=== PATIENT | female | born 1990 ===

== ENCOUNTER 2020-08-23 08:24 | Outpatient (REF) | payer OTHER, SELFPAY ==
[2020-08-23 11:41] LABS: Hematocrit 40.9 % (37-47); Hemoglobin 13.2 g/dl (12.0-16.0)
[2020-08-23 12:26] LABS: Alanine Aminotransferase 27 U/L (0-31); Albumin Level 4.4 g/dL (3.5-5.0); Alkaline Phosphatase 58 U/L (39-117); Anion Gap 11 (12-20); Aspartate Amino Transferase 24 U/L (5-31); Bilirubin Total 0.3 mg/dL (0.0-1.0); Blood Urea Nitrogen 20 mg/dL (9-16); Calcium 9.2 mg/dL (8.4-10.2); Carbon Dioxide 26 mmol/L (22-29); Chloride 107 mmol/L (96-108); Cholesterol 164 mg/dL; Estimated Glomerular Filt Rate > 60; Glucose Fasting 93 mg/dL (60-99); HDL Cholesterol 65 mg/dL; LDL Cholesterol Calculated 89 mg/dl; Potassium 4.2 mmol/L (3.3-5.1); Sodium 140 mmol/L (135-145); Total Protein 7.4 g/dL (6.5-8.0); Triglycerides 54 mg/dL
[2020-08-24 08:42] LABS: Herpes Simplex Type 2 IgG <0.90 index
== END 2020-08-23 08:25 | disposition home or self-care (01) ==
LOC: HO.HMGCLDS 08:24
PROVIDERS: PCP Internal Medicine; Visit Provider Internal Medicine
DX: Z00.01 Encounter for general adult medical examination with abnormal findings (principal); B00.1 Herpesviral vesicular dermatitis
CPT/HCPCS: 36415; 80053; 80061; 85014; 85018; 86695; 86696

== ENCOUNTER 2021-01-13 10:48 | Outpatient (REF) | payer OTHER, SELFPAY ==
[2021-01-13 14:48] LABS: HCG Quantitative < 2 mIU/mL
== END 2021-01-13 10:49 | disposition home or self-care (01) ==
LOC: HO.HMGCLDS 10:48
PROVIDERS: PCP Internal Medicine; Visit Provider Internal Medicine
DX: Z34.90 Encounter for supervision of normal pregnancy, unspecified, unspecified trimester (principal)
CPT/HCPCS: 36415; 84702

== ENCOUNTER 2022-05-15 12:42 | Outpatient (REF) | payer BC, MEDICAID, SELFPAY ==
--- NOTE | ~2022-05-15 | XR_ITS ---
EXAMINATION: XR WRIST, RIGHT CLINICAL INFORMATION: Wrist pain COMPARISON: None TECHNIQUE: PA, lateral, and oblique views of the right wrist. FINDINGS: The bones and soft tissues are normal. No fracture. Alignment is anatomic with normal joint spaces. No erosions or abnormal soft tissue calcifications. XR/XR wrist RT min 3V IMPRESSION: Normal right wrist.
== END 2022-05-15 12:43 | disposition home or self-care (01) ==
LOC: HO.HMGCX 12:42
PROVIDERS: PCP Internal Medicine; Visit Provider Physician Assistant Medical
DX: M25.531 Pain in right wrist (principal)
CPT/HCPCS: 73110

== ENCOUNTER 2022-10-05 09:15 | Outpatient (REF) | payer BC, MEDICAID, SELFPAY ==
--- NOTE | ~2022-10-05 | XR_ITS ---
EXAMINATION: XR CHEST CLINICAL INFORMATION: Dizziness and giddiness COMPARISON: None available. TECHNIQUE: 2 views of the chest were obtained. FINDINGS: No significant abnormality is noted involving the heart, lungs, mediastinum, bony thorax or soft tissues. XR/XR chest 2V IMPRESSION: Unremarkable examination.
[2022-10-05 11:44] LABS: Appearance Urine Cloudy; Color Urine Yellow; Glucose Urine UA Negative (Negative); Leukocyte Esterase Urine Small (1+) (Negative); Nitrite Urine Negative (Negative); Specific Gravity - Urine 1.015 (1.005-1.025); UMIC TRIGGER UA YES; Urine Blood Moderate (2+) (Negative); Urine Ketones Negative (Negative); Urine Protein Trace mg/dL (Neg-Trace)
[2022-10-05 11:44] LABS: Hematocrit 43.2 % (37.0-47.0); Hemoglobin 14.7 g/dl (12.0-16.0); Mean Corpuscular Hemoglobin 31.8 pg (27.0-33.0); Mean Corpuscular Volume 93.5 fL (80.0-98.0); Mean Platelet Volume 11.2 fL (9.4-12.3); Platelet Count 202 X10*3/uL (160-400); Red Blood Count 4.62 X10*6/uL (4.20-5.50); Red Cell Distribution Width 12.2 % (11.0-16.0); White Blood Count 4.9 X10*3/uL (4.8-10.8)
[2022-10-05 12:03] LABS: Bacteria Urine 4+ (None Seen); Hyaline Casts Urine 0-2 /LPF (0-2); RBC Urine 0-2 /HPF (0-2)
[2022-10-05 12:18] LABS: Alanine Aminotransferase 18 U/L (0-31); Albumin Level 4.1 g/dL (3.5-5.0); Alkaline Phosphatase 64 U/L (39-117); Anion Gap 11 (12-20); Aspartate Amino Transferase 14 U/L (5-31); Bilirubin Direct 0.1 mg/dL (0.0-0.5); Bilirubin Total 0.3 mg/dL (0.0-1.0); Blood Urea Nitrogen 12 mg/dL (9-16); Calcium 9.1 mg/dL (8.4-10.2); Carbon Dioxide 24 mmol/L (22-29); Chloride 108 mmol/L (96-108); Estimated Glomerular Filt Rate > 60; Glucose Random 96 mg/dL (60-115); Potassium 4.3 mmol/L (3.3-5.1); Sodium 139 mmol/L (135-145); Total Protein 7.2 g/dL (6.5-8.0)
[2022-10-05 12:21] LABS: Thyroid Stimulating Hormone 1.61 uIU/mL (0.32-4.0)
== END 2022-10-05 09:16 | disposition home or self-care (01) ==
LOC: HO.HMGCX 09:15
PROVIDERS: PCP Internal Medicine; Visit Provider Internal Medicine
DX: R42 Dizziness and giddiness (principal); E03.9 Hypothyroidism, unspecified
CPT/HCPCS: 36415; 71046; 80048; 80076; 81001; 84443; 85027

== ENCOUNTER 2023-01-13 11:13 | Outpatient (AMB) | payer BC, SELFPAY ==
--- NOTE | 2023-01-13 11:15 | A.OFFPC_ITS ---
Vital Signs 01/13/23 11:18 Height 5 ft 4 in Weight 146 lb BMI 25.1 BP 116/76 Blood Pressure Location Rt brachial Position Sitting Pulse 78 Pulse Source Pulse Oximeter Pulse Oximetry (%) 97 Oxygen Delivery Method Room Air Intake Visit Reasons: Physical exam Intake Note: she would like to talk about on going headaches, almost daily. Allergies lactose Allergy (Unknown, Verified 01/13/23 11:19) abdominal pain seasonal Allergy (Unknown, Uncoded 01/13/23 11:19) unknown Medication List - Last Reconciled 01/13/23 by Mo Davis MD ascorbate calcium (vitamin C) 500 mg PO DAILY ibuprofen 400 mg (2 x 200 mg) PO ONCE PRN 90 days norethindrone ac-eth estradiol 1.5-30 mg-mcg (June) 1 tab PO DAILY valacyclovir 500 mg PO DAILY Tobacco use date assessed: 01/13/23 Dental Screening Dental Screen Date: 01/13/23 Did you have a dental visit in the last 12 months?: Yes Was dental information given to patient?: Patient has dentist HPI Physical exam HPI Details Patient is a 32-year-old female came in today for physical examination Patient has seen her OBGYN December 06, consultation note reviewed Patient was seen in walk-in clinic for possible UTI patient says that she was told that she has infection but for some reason medication was not sent. Her OBGYN note mention PCP but it was not me it was a provider in walk-in clinic. Patient says that it was a mistake that she set PCP. She was treated at OBGYN visit and is feeling fine. Patient have a large skin growth in the middle of her chest which is bleeding off and on she is requesting a consultation with Dermatology. She also have a history of migraine headaches which has been fine but lately they have started to come back again They start from 1 side of the head and then spread to the whole head. Throbbing in nature and sometimes associated with nausea I am starting her on amitriptyline 10 mg at night as a prevention And sumatriptan 50 mg to be taken as soon as headache starts once a day only. 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 She had labs done few weeks ago I went over that common no new labs were ordered during this visit. Physical exam 1 year [facility] Surgical History History of knee surgery Family History Father HTN (hypertension) Diabetes mellitus Mother Breast cancer Paternal Uncle Lung cancer Sister No problems noted. Social History Housing: House Alcohol intake: current Alcohol intake frequency: a few times a month Patient Tobacco Use Status: Never used Tobacco e-Cigarette/Vaping Use: Never Used service: No Current occupational status: employed Cognitive needs: No Hearing needs: No Vision needs: Yes Questionnaire PHQ-9 Over the last 2 weeks, how often have you been bothered by any of the following problems? [id number] - PHQ-9 Billing: Patient declined-do not bill Source: Developed by Drs. Serjio Greene, Shivani Bell, Rolando Murillo and colleagues, with an educational tahira from [employer]. AUDIT C Alcohol Use Questionnaire (AUDIT-C) 1. How often do you have a drink containing alcohol?: Never 3. How often do you have six or more drinks on one occasion?: Never Total Score: 0 Score Reviewed/Action Taken: No Review of Systems Const Denies chills, Denies fever(s) and Denies headache(s) Eyes Denies blurry vision ENT Denies headache(s), Denies nasal discharge, Denies nasal obstruction, Denies odynophagia and Denies sinus pain Card Denies chest pain at rest and Denies chest pain with activity Resp Denies cough and Denies hemoptysis GI Denies diarrhea, Denies odynophagia, Denies vomiting and Denies hematemesis Reports as per HPI Musc Denies abnormal gait Skin/Breast Reports as per HPI Neuro Denies Neuro-related abnormal movements, Denies Abnormal speech present, Denies abnormal gait, Denies headache(s) and Denies Sensory deficit (Neuro) Psych Denies mood swings and Denies paranoia Endo Reports as per HPI Stefano/Lymph Reports as per HPI Aller/Immun Reports as per HPI Physical exam (Primary Care) Vital Signs: Last Vital Signs Pulse 78 01/13/23 11:18 BP 116/76 01/13/23 11:18 Pulse Ox 97 01/13/23 11:18 Oxygen Delivery Method Room Air 01/13/23 11:18 BMI result Body Mass Index 25.1 Tobacco/Smoking Status: Tobacco use Status Tobacco use date assessed 01/13/23 01/13/23 11:22 Patient Tobacco Use Status Never used Tobacco 01/13/23 11:16 e-Cigarette/Vaping Use Never Used 01/13/23 11:16 Const General: cooperative, comfortable and no acute distress Orientation/consciousness: patient oriented x3 HENMT Head: Yes normocephalic and Yes atraumatic Eyes General: appearance normal, both eyes and all related structures Pupils: Equal, round and reactive pupils present EOM: EOMs intact bilaterally Neck Neck: Yes supple and No lymphadenopathy Thyroid: Thyroid normal Lymphatic: no lymphadenopathy noted Resp Effort & Inspection: normal respiratory effort and able to speak in complete s entences Auscultation: clear to auscultation bilaterally Cardio Heart sounds: S1 normal heart sound present and S2 normal heart sound present GI Palpation (GI): Soft to palpation and nontender Auscultation: normal bowel sounds General: Yes no CVA tenderness Back/Spine/Pelvis Back: no CVA tenderness Skin General skin exam: elasticity normal and turgor normal Neuro General: patient oriented x3 and gait normal Cranial nerves: Yes Equal, round and reactive pupils present Speech: No Abnormal speech present Sensory Exam: No Sensory deficit (Neuro) Coordination: tandem gait normal and Romberg test negative Extrem General: Yes normal exam except as noted and No edema Assessment and Plan Assessment & Plan (1) Encounter for general adult medical examination with abnormal findings: Code(s): Z00.01 - Encounter for general adult medical examination with abnormal findings (2) Bleeding skin mole: Code(s): D22.9 - Melanocytic nevi, unspecified; R23.3 - Spontaneous ecchymoses (3) Herpes labialis: Code(s): 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 - Herpesviral vesicular dermatitis (4) Migraine headache: Code(s): G43.909 - Migraine, unspecified, not intractable, without status migrainosus Qualifiers: Intractability: intractable Migraine type: without aura Status migrainosus presence: without status migrainosus Qualified Code(s): G43.019 - Migraine without aura, intractable, without status migrainosus Plan Patient is a 32-year-old female came in today for physical examination Patient has seen her OBGYN December 06, consultation note reviewed Patient was seen in walk-in clinic for possible UTI patient says that she was told that she has infection but for some reason medication was not sent. Her OBGYN note mention PCP but it was not me it was a provider in walk-in clinic. Patient says that it was a mistake that she set PCP. She was treated at OBGYN visit and is feeling fine. Patient have a large skin growth in the middle of her chest which is bleeding off and on she is requesting a consultation with Dermatology. She also have a history of migraine headaches which has been fine but lately th ey have started to come back again They start from 1 side of the head and then spread to the whole head. Throbbing in nature and sometimes associated with nausea I am starting her on amitriptyline 10 mg at night as a prevention And sumatriptan 50 mg to be taken as soon as headache starts once a day only. 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 She had labs done few weeks ago I went over that common no new labs were ordered during this visit. Physical exam 1 year Orders: Referrals Dermatology Referral D22.9 - Melanocytic nevi, unspecified, R23.3 - Spontaneous ecchymoses Medications: New amitriptyline 10 mg PO BEDTIME 30 tabs 1RF sumatriptan succinate 50 mg PO ONCE PRN 10 tabs 0RF migraine headache 30 days Refilled valacyclovir 500 mg PO DAILY 90 tabs 0RF Coding Level of Care Code Est Pt Prev Care 18-39y(81669) Diagnoses Encounter for general adult medical examination with abnormal findings Z00.01 Bleeding skin mole D22.9; R23.3 Herpes labialis B00.1 Migraine headache G43.019 Intractability: intractable Migraine type: without aura Status migrainosus presence: without status migrainosus
[2023-01-13 11:18] VITALS: BP 116/76; PULSE 78; O2SAT 97; BMI 25.1
== END 2023-01-13 11:47 | disposition home or self-care (01) ==
PROVIDERS: PCP Internal Medicine; Visit Provider Internal Medicine
DX: Z00.01 Encounter for general adult medical examination with abnormal findings (principal); G43.019 Migraine without aura, intractable, without status migrainosus; D22.9 Melanocytic nevi, unspecified; R23.3 Spontaneous ecchymoses; B00.1 Herpesviral vesicular dermatitis
CPT/HCPCS: 99395

== ENCOUNTER 2023-03-17 14:55 | Outpatient (AMB) | payer BC, SELFPAY ==
[2023-03-17 14:59] VITALS: BP 110/70; PULSE 92; TEMP 36.7; O2SAT 99; BMI 24.7
--- NOTE | 2023-03-17 14:59 | AM.OFFWIN_ITS ---
Intake Vital Signs 03/17/23 14:59 Height 5 ft 4 in Weight 144 lb BMI 24.7 BP 110/70 Blood Pressure Location Lt brachial Position Sitting Pulse 92 Pulse Source Pulse Oximeter Temp 98.0 F Temp Source Temporal Artery Scan Pulse Oximetry (%) 99 Intake Visit Reasons: EST/sore throat(lobby) Intake Note: pt is here for c/o sore throat 3x weeks Patient Tobacco Use Status: Never used Tobacco Allergies lactose Allergy (Unknown, Verified 03/17/23 14:59) abdominal pain seasonal Allergy (Unknown, Uncoded 01/13/23 11:19) unknown Do you need a note to return to daycare/school/sports/work: Yes HPI HPI Comments History of Present Illness Details 32-year-old I would not have female that presents for sore throat cough and a postnasal drip times 3 weeks. Cough is productive denies fevers or chills endorses some shortness of breath with coughing fits. PFSH Surgical History History of knee surgery Family History Father HTN (hypertension) Diabetes mellitus Mother Breast cancer Paternal Uncle Lung cancer Sister No problems noted. Social History Housing: House Alcohol intake: current Alcohol intake frequency: a few times a month Patient Tobacco Use Status: Never used Tobacco e-Cigarette/Vaping Use: Never Used service: No Current occupational status: employed Cognitive needs: No Hearing needs: No Vision needs: Yes Review of Systems ENT Reports sore throat Resp Reports chest congestion and Reports cough Physical Exam Vital Signs: Last Vital Signs Temp 98.0 F 03/17/23 14:59 Pulse 92 03/17/23 14:59 BP 110/70 03/17/23 14:59 Pulse Ox 99 03/17/23 14:59 BMI result Body Mass Index 24.7 Const General: cooperative, no acute distress and alert Orientation/consciousness: patient oriented x3 Limitations: no limitations HEENT Other: Mild erythema in the posterior pharynx uvula midline no trismus Head: Yes normal to inspection Ears: hearing grossly normal bilaterally and external ears normal General nose exam: Normal external nose present Eyes General: appearance normal, both eyes and all related structures Neck Neck: Yes normal visual inspection Resp Effort & Inspection: normal respiratory effort, able to speak in complete sentences and no audible wheezes Auscultation: clear to auscultation bilaterally Cardio Rate: regular rate Rhythm: regular rhythm Skin General skin exam: no rashes or lesions noted Neuro General: patient oriented x3 Psych Appearance: grossly normal Mental Status: mental status grossly normal Speech and movement: Normal speech and movement present Affect: normal affect Attitude: cooperative Thought process: Normal thought process present Thought content: Normal thought content present Assessment & Plan Assessment & Plan (1) URI (upper respiratory infection): Code(s): J06.9 - Acute upper respiratory infection, unspecified Qualifiers: URI type: unspecified viral URI Qualified Code(s): J06.9 - Acute upper respiratory infection, unspecified Plan: VSS. On exam patient presents alert and oriented no acute distress exam otherwise unremarkable patient was suffering from viral URI recommend continued symptomatic treatment recommend addition of antihistamines to help with postnasal drip. Discharge instructions, follow up and treatment are discussed with patient in my usual fashion. Alternatives in treatment are also discussed. The patient will return for worsening symptoms or as needed. Advised that any labs/imaging order ed will be followed up on and contact made if further treatment needed. Counseled that patient's condition may require further evaluation and/or treatment. Symptoms of concern for worsening disorder discussed in detail in my customary manner. Patient does verbalize understanding of the plan, there are no apparent barriers to communication. The patient is given the opportunity to ask questions and have them answered to his/her satisfaction Coding Level of Care Code Est Pt Level 3 (08047) Diagnoses Viral upper respiratory tract infection J06.9 URI type: unspecified viral URI
== END 2023-03-17 15:22 | disposition home or self-care (01) ==
PROVIDERS: PCP Internal Medicine; Visit Provider Physician Assistant
DX: J06.9 Acute upper respiratory infection, unspecified (principal)
CPT/HCPCS: 99213

== ENCOUNTER 2023-06-19 09:33 | Outpatient (AMB) | payer BC, SELFPAY ==
[2023-06-19 10:17] VITALS: BP 130/82; PULSE 85; TEMP 36.7; O2SAT 99; BMI 24.8
--- NOTE | 2023-06-19 10:17 | MHC.OFFWIV ---
Intake Vital Signs 06/19/23 10:17 Height 5 ft 4 in Weight 144 lb 6 oz BMI 24.8 BP 130/82 Blood Pressure Location Lt brachial Position Sitting Pulse 85 Pulse Source Pulse Oximeter Temp 98.0 F Temp Source Oral Pulse Oximetry (%) 99 Intake Visit Reasons: EP strep throat possible pink eye both eyes Intake Note: pt is here for c/o possible strep throat, possible oink eye in both eyes Patient Tobacco Use Status: Never used Tobacco Allergies lactose Allergy (Unknown, Verified 06/19/23 10:18) abdominal pain seasonal Allergy (Unknown, Uncoded 01/13/23 11:19) unknown Do you need a note to return to daycare/school/sports/work: Yes HPI HPI Comments History of Present Illness Details This is a 32-year-old female presenting to the office complaining of a sore throat as well as bilateral eye redness and discharge x2 weeks. She states her symptoms started 2 weeks ago but actually resolved. Her symptoms then started again about 2 days ago. In terms for sore throat, she reports odynophagia but she denies any dysphagia or throat swelling. She denies any fever/chills. She denies any nasal/sinus congestion or rhinorrhea. In terms of her eye symptoms, she states she has been waking up with her eyes crusted shut. Her eyes are slightly erythematous. She denies any visual disturbances. [facility] Surgical History History of knee surgery Family History Father HTN (hypertension) Diabetes mellitus Mother Breast cancer Paternal Uncle Lung cancer Sister No problems noted. Social History Housing: House Alcohol intake: current Alcohol intake frequency: a few times a month Patient Tobacco Use Status: Never used Tobacco e-Cigarette/Vaping Use: Never Used service: No Current occupational status: employed Cognitive needs: No Hearing needs: No Vision needs: Yes Review of Systems Const All systems reviewed & are unremarkable except as noted in HPI and below Reports no additional complaints Eyes Reports no additional complaints ENT Reports no additional complaints Card Reports no additional complaints Resp Reports no additional complaints GI Reports no additional complaints Reports no additional complaints Musc Reports no additional complaints Skin/Breast Reports system reviewed and no additional complaints, except as documented Neuro Reports no additional complaints Psych Reports no additional complaints Endo Reports no additional complaints Stefano/Lymph Reports no additional complaints Aller/Immun Reports no additional complaints Physical Exam Vital Signs: Last Vital Signs Temp 98.0 F 06/19/23 10:17 Pulse 85 06/19/23 10:17 BP 130/82 06/19/23 10:17 Pulse Ox 99 06/19/23 10:17 BMI result Body Mass Index 24.8 Const Other: Vital signs reviewed. Constitutional: Non-toxic appearing. No acute distress. Well-developed and well-nourished. HEENT: Normocephalic and atraumatic. Moist mucous membranes. There is no posterior pharyngeal erythema, exudates swelling, or masses. There is minimal conjunctival injection with some discharge. Skin: Warm and dry. No rashes or lesions noted. Neck: Full and painless range of motion. No cervical lymphadenopathy. Cardio: Regular rate and rhythm. No murmurs, gallops, or rubs. No lower extremity edema. No JVD. Pulmonary: No respiratory distress. No accessory muscle usage. Gastrointestinal: Soft, nontender, and nondistended in all 4 quadrants. Musculoskeletal: Normal range of motion in joints throughout the body. No deformity or other signs of injury. Neuro: Alert and oriented x4. Cranial nerves 2-12 grossly intact. No focal deficits appreciated. Psych: Normal mood and affect. Assessment & Plan Assessment & Plan (1) Acute viral pharyngitis: Code(s): J02.9 - Acute pharyngitis, unspecified Plan: This is a 32-year-old presenting to the office complaining of a sore throat. On physical examination, there is no posterior pharyngeal erythema, exudates, swelling, or masses. History and physical most consistent with acute pharyngitis, likely viral. Rapid strep test is negative. No evidence of peritonsillar mass/abscess, peritonsillar cellulitis, or, unilateral neck swelling. Patient's vital signs are stable, physical exam is otherwise benign, and patient is overall nontoxic appearing. Recommended symptomatic management including rest, increased fluids, advil/tylenol for pain/fever, salt water gargles, and over the counter throat lozenges. Patient advised to follow up here or go to the emergency room for worsening/persistent symptoms. Patient verbalizes understanding and is in agreement the plan. (2) Bacterial conjunctivitis: Code(s): H10.9 - Unspecified conjunctivitis Plan: Patient complaining of bilateral eye redness and eye discharge with crusting. History and physical most consistent with a bacterial versus viral versus allergic conjunctivitis. Patient was given a prescription for ofloxacin eyedrops for treatment of possible bacterial conjunctivitis. If these eyedrops are ineffective, patient was instructed to utilize [id number] olopatadine eyedrops. She was also instructed to take an oral antihistamine. Patient should continue with symptomatic management including warm/cool compresses. Patient verbalized her understanding and she is in agreement with the plan. Medications: New ofloxacin 0.3% 2 drps ophthalmic (eye) QID 10 mL 0RF Coding Level of Care Code Est Pt Level 3 (89670) Diagnoses Acute viral pharyngitis J02.9 Bacterial conjunctivitis H10.9
== END 2023-06-19 11:09 | disposition home or self-care (01) ==
PROVIDERS: PCP Internal Medicine; Visit Provider Physician Assistant Medical
DX: J02.9 Acute pharyngitis, unspecified (principal); H10.9 Unspecified conjunctivitis
CPT/HCPCS: 87880; 99213

== ENCOUNTER 2023-06-24 08:06 | Outpatient (AMB) | payer BC, SELFPAY ==
--- NOTE | 2023-06-24 07:54 | A.OFFPC_ITS ---
Intake Visit Reasons: Referral Req~[phone] Allergies lactose Allergy (Unknown, Verified 06/19/23 10:18) abdominal pain seasonal Allergy (Unknown, Uncoded 01/13/23 11:19) unknown Medication List - Last Reconciled 06/24/23 by Mo Davis MD amitriptyline 10 mg PO BEDTIME ascorbate calcium (vitamin C) 500 mg PO DAILY ibuprofen 400 mg (2 x 200 mg) PO ONCE PRN 90 days norethindrone ac-eth estradiol 1.5-30 mg-mcg () 1 tab PO DAILY ofloxacin 0.3% 2 drps ophthalmic (eye) QID sumatriptan succinate 50 mg PO ONCE PRN 30 days valacyclovir 500 mg PO DAILY Tobacco use date assessed: 01/13/23 HPI Referral Req~[phone] HPI Details This 32-year-old female this is a telemedicine visit Patient have migraine headache she was started on amitriptyline 10 mg to prevent migraines, patient said that medication did work for her however it is causing side effect of diarrhea and stomach cramping so she prefers not to take it. I am changing the medication to Topamax 25 mg to be taken at night, patient is to get back to me in couple of weeks and update me [facility] Surgical History History of knee surgery Family History Father HTN (hypertension) Diabetes mellitus Mother Breast cancer Paternal Uncle Lung cancer Sister No problems noted. Social History Housing: House Alcohol intake: current Alcohol intake frequency: a few times a month Patient Tobacco Use Status: Never used Tobacco e-Cigarette/Vaping Use: Never Used service: No Current occupational status: employed Cognitive needs: No Hearing needs: No Vision needs: Yes Review of Systems Const Denies chills and Denies fever(s) ENT Denies epistaxis and Denies nasal discharge Card Denies chest pain Resp Denies chest congestion, Denies cough and Denies hemoptysis GI Denies diarrhea and Denies nausea Skin/Breast Denies rash Neuro Reports no additional complaints Psych Reports no additional complaints Endo Reports no additional complaints Physical exam (Primary Care) Tobacco/Smoking Status: Tobacco use Status Tobacco use date assessed 01/13/23 06/24/23 07:56 Patient Tobacco Use Status Never used Tobacco 06/24/23 07:56 e-Cigarette/Vaping Use Never Used 06/24/23 07:56 Telehealth Telehealth Location of provider rendering services: practice address Location of patient: address on file Patient Identification confirmed using: Name, : Yes Telehealth method: voice only Patient verbally consented to treatment: Yes Patient verbally consented to billing insurance company: Yes Patient informed of any privacy concerns related to visit: Yes Assessment and Plan Assessment & Plan (1) Migraine headache: Code(s): G43.909 - Migraine, unspecified, not intractable, without status migrainosus Qualifiers: Intractability: intractable Migraine type: without aura Status migrainosus presence: without status migrainosus Qualified Code(s): G43.019 - Migraine without aura, intractable, without status migrainosus Plan This 32-year-old female this is a telemedicine visit Patient have migraine headache she was started on amitriptyline 10 mg to prevent migraines, patient said that medication did work for her however it is causing side effect of diarrhea and stomach cramping so she prefers not to take it. I am changing the medication to Topamax 25 mg to be taken at night, patient is to get back to me in couple of weeks and update me Medications: New propranolol 20 mg PO .qhs 30 tabs 0RF 30 days Discontinued amitriptyline Discontinued Reason: Patient no longer taking 10 mg PO BEDTIME 30 tabs 1RF Coding Level of Care Code Tele Est Pt Level 3 (27500) Diagnoses Intractable migraine without aura and without status migrainosus G43.019 Intractability: intractable Migraine type: without aura Status migrainosus presence: without status migrainosus Time Spent (min) 12
== END 2023-06-24 08:06 | disposition home or self-care (01) ==
LOC: HO.HMGC 08:06
PROVIDERS: PCP Internal Medicine; Visit Provider Internal Medicine
DX: G43.019 Migraine without aura, intractable, without status migrainosus (principal)
CPT/HCPCS: 99442

== ENCOUNTER 2023-10-08 14:47 | Outpatient (AMB) | payer BC, SELFPAY ==
--- NOTE | 2023-10-08 14:58 | A.OFFVIS_ITS ---
Vital Signs 10/08/23 14:59 Height 5 ft 4 in Weight 151 lb BMI 25.9 BP 122/80 Blood Pressure Location Rt brachial Position Sitting Pulse 100 Pulse Source Pulse Oximeter Pulse Oximetry (%) 98 Oxygen Delivery Method Room Air Intake Visit Reasons: [id number]gium[facility] to lvm Intake Note: Patient presents for migraines. patient use to get migraines every day it's gotten a little better. Allergies lactose Allergy (Unknown, Verified 06/19/23 10:18) abdominal pain seasonal Allergy (Unknown, Uncoded 01/13/23 11:19) unknown Medication List - Last Reconciled 10/08/23 by Farrah Rivera, ARISTEO ascorbate calcium (vitamin C) 500 mg PO DAILY ibuprofen 400 mg (2 x 200 mg) PO ONCE PRN 90 days norethindrone ac-eth estradiol 1.5-30 mg-mcg (Junel) 1 tab PO DAILY ofloxacin 0.3% 2 drps ophthalmic (eye) QID sumatriptan succinate 50 mg PO ONCE PRN 30 days valacyclovir 500 mg PO DAILY HPI Comments Details: Left handed 32-yr-old female presents for new pt evaluation of headache disorder. Pt reports she has had migraine with aura since childhood. She has never seen neurology before. She comes to neurology now as she was having increased migraine frequency, which has improved some but not completely after her control was changed from an estrogen to non-estrogen OCP, about a month ago. PMH and ROS significant for: Musculoskeletal disorders or injury: ACL surgery x's 1. Cramps: may wake up w/ a spasm/shaky- maybe 3-4 x's per yr. Mood d/o: Anxiety- mild GI d/o: Constipation or Loose stools- if eats dairy Pertinent denials include: History of concussion/head injury, Sleep d/o, Respiratory d/o, CV disease, Clotting or hematology d/o, Endocrine or metabolic d/o, renal d/o or kidney stones. History of seizure, syncope, or drop attacks, Leg Cramps, Family history of migraine or other headache disorder Headache questionnaire:? Previous work-up: None Types of headache disorders: 2- mild headache and migraine type headache Typical headache characteristics: Prodrome symptoms: None Aura: Sees little lights in her and flashing lights right eye f/b blurry vision x's a few minutes- occurs before a migraine but not a headache. Pain intensity: Severe Location, quality, characteristics: Usually right sided, but can be left sided, frontal, retroorbital, temporal throbbing and stabbing pain Associated symptoms? Photophobia, phonophobia, nausea, rarely vomiting, allodynia, fatigue, ayaz eye tearing, activity intolerance. Postdrome: lingering s/s Triggers: stress, skipping meals, not getting fluid, weather changes. Menstrual triggers: Menses is irregular- has never noticed a clear trigger. Exertional trigger- exercise may trigger headache, but thinks she has not drank enough fluids. Time of day: More towards the end of the day of work. Or first thing in the am. Duration and Frequency: 5-8 x's per day, sometimes lasts 1-2 days. How does headache impact your life? Has had to miss work for migraine. Mild headache- an occasional throbbing irritating headache not a/w photophobia or phonophobia. Occurs 1-2 x's per month. Current acute medication use/interventions: Ibuprofen 800mg Current preventative medication use: None Non-pharmacological interventions: Rest. Ice or heat. Lifestyle considerations: Sleep routine: Bedtime: 8pm Wake-up time: 6am- does wake up for her 2 yr old son. Sleep difficulties: Endorses: Excessive daytime sleepiness,, Restless sleep, leg spasms. 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 Family planning: No actual plans. On control. [facility]LY [facility] Surgical History History of knee surgery Family History Father HTN (hypertension) Diabetes mellitus Mother Breast cancer Paternal Uncle Lung cancer Sister No problems noted. Social History Housing: House Alcohol intake: current Alcohol intake frequency: a few times a month Patient Tobacco Use Status: Never used Tobacco e-Cigarette/Vaping Use: Never Used service: No Current occupational status: employed Cognitive needs: No Hearing needs: No Vision needs: Yes Physical Exam Vital Signs: Last Vital Signs Pulse 100 10/08/23 14:59 BP 122/80 10/08/23 14:59 Pulse Ox 98 10/08/23 14:59 Oxygen Delivery Method Room Air 10/08/23 14:59 BMI result Body Mass Index 25.9 Const Orientation/consciousness: patient oriented x3 HEENT Other: No palpable scalp tenderness. Head: Yes normocephalic Resp Effort & Inspection: normal respiratory effort and able to speak in complete sentences Neuro Other: Mild posterior cervical tightness. Mild bilateral TMJ/masseter tightness. Signs of lower teeth wearing. General: patient oriented x3 Cranial nerves: Yes CN's II-XII intact bilaterally (w/ exception of left eye deviates laterally on convergence.) Cognition (Neuro): normal cognition Gait exam (Neuro): Normal gait present Motor exam (neuro): 5/5 motor strength present throughout Deep tendon reflexes (DTR's): Right triceps reflex intensity grade: 2+, Left triceps reflex intensity grade: 2+, Rt Biceps (C5, C6): 2+, Left biceps reflex intensity grade: 2+, Right brachioradialis reflex intensity grade: 2+, Left brachioradialis reflex intensity grade: 2+, Right patellar reflex intensity grade: 2+ and Left patellar reflex intensity grade: 2+ Coordination: [id number] test normal, tandem gait normal and Romberg test negative Pupils: Normal pupillary reactivity/response: bilateral Psych Appearance: grossly normal Mental Status: mental status grossly normal Speech and movement: Normal speech and movement present Affect: normal affect Attitude: cooperative Thought process: Normal thought process present Assessment & Plan Assessment & Plan (1) Migraine with aura: Code(s): G43.109 - Migraine with aura, not intractable, without status migrainosus Category: Medical (2) Migraine headache: Code(s): G43.909 - Migraine, unspecified, not intractable, without status migrainosus Category: Medical Qualifiers: Intractability: intractable Migraine type: without aura Status migrainosus presence: without status migrainosus Qualified Code(s): G43.019 - Migraine without aura, intractable, without status migrainosus (3) Visual aura: Code(s): H53.9 - Unspecified visual disturbance Category: Medical (4) Bruxism, sleep-related: Code(s): G47.63 - Sleep related bruxism Category: Medical Plan Pt advised to undergo: Pt is advsied to undergo barin MRI w/o- d/t worsening headcahes w/ visual aura. For overall headache management: Optimize good self-care, including but not limited to maintaining a healthy diet, adequate fluid intake, adequate sleep, and engaging in regular physical activity. For headache triggers: Track headaches, especially after any treatment regimen changes. [employer] is one of many headache tracking apps. Light sensitivity tips: Patient may try blue light filtering glasses, green glasses, green light therapy. Avoid wearing sunglasses inside. For Bruxism: Try OTC mouth guard- her previous mouth guard is broken. For acute headache treatment: Discussed importance of taking acute medications at the first sign of headache, however stressed importance of avoiding acute medication overuse (especially with combined headache medications). Resume Sumatriptan, but will increase dose from 50mg to 100mg prn, MR in 2 hrs, max 200mg/day. May take w/ Ibuprofen 400-800mg prn. Potential adverse effects of triptans, including but not limited to nausea, fatigue, chest tightness/tingling (usually passes within a few minutes), medic ation overuse headaches. Previous acute migraine medication trials: Sumatriptan 50mg- usually helps, but runs out by end of month. Intranasal liquid tx- was effective, pt unsure of name. Acute migraine medication contraindications: None at this time For headache prevention medication: Preventative medications should be taken routinely as prescribed for best effect, it may take several weeks for full effect to take effect. Information shared on Riboflavin 400mg qam and Magnesium 400mg qhs] Start Propranolol ER 60mg qhs- this ross not contain lactose. Potential adverse effects of betablockers, including but not limited to fatigue, hypotension, slow heart rate, mood changes, respiratory changes. Previous migraine prevention medication trials: Amitriptyline 10mg, helped but caused GI s/s, constipation. Migraine prevention medication contraindications: Pt has lactose allergy. Pt to follow-up in 3 months or sooner prn. Orders: Orders MR head/brain wo con Today G43.019 - Migraine without aura, intractable, without status migrainosus, H53.9 - Unspecified visual disturbance Medications: New sumatriptan succinate (0.5 - 1 x 100 mg) 50 - 100 mg orally at onset of headache, may repeat in 2 hrs PRN; max 2 tabs per day or 4 tabs/week (may take with Ibuprofen) 30 days 12 tabs 6RF migraine headache propranolol ER 60 mg PO BEDTIME 30 days 30 caps 3RF Coding Level of Care Code New Pt Level 4 (05121) Diagnoses Migraine with aura G43.109 Intractable migraine without aura and without status migrainosus G43.019 Intractability: intractable Migraine type: without aura Status migrainosus presence: without status migrainosus Visual aura H53.9 Bruxism, sleep-related G47.63
[2023-10-08 14:59] VITALS: BP 122/80; PULSE 100; O2SAT 98; BMI 25.9
== END 2023-10-08 16:02 | disposition home or self-care (01) ==
PROVIDERS: PCP Internal Medicine; Visit Provider Nurse Practitioner Family
DX: G43.109 Migraine with aura, not intractable, without status migrainosus (principal); G43.019 Migraine without aura, intractable, without status migrainosus; H53.9 Unspecified visual disturbance; G47.63 Sleep related bruxism
CPT/HCPCS: 99204

== ENCOUNTER → 2023-10-08 14:47 | Outpatient (BNVA) | payer BC, SELFPAY | PROVIDERS: PCP Internal Medicine; Visit Provider Nurse Practitioner Family ==

== ENCOUNTER 2023-11-15 12:46 | Outpatient (REF) | payer BC, SELFPAY ==
--- NOTE | ~2023-11-15 | MR_ITS ---
EXAMINATION: MR BRAIN WITHOUT CONTRAST CLINICAL INFORMATION: Migraine headaches with visual disturbance COMPARISON: None available. TECHNIQUE: MRI of the brain was obtained using routine sequences without contrast. FINDINGS: Ventricles, sulci and cisterns are normal. No focal cerebral, brainstem or cerebellar lesions with abnormal signal can be seen. Diffusion weighted images show no abnormal regional decrease in diffusion. Normal flow voids of major intracerebral blood vessels are seen in the visualized portion. The pituitary gland is normal. Optic chiasm is not displaced. Cerebellar tonsils position is normal. Bilateral ethmoid sinuses show mild mucosal thickening. MR/MR head/brain wo con IMPRESSION: 1. Normal MRI scan of the brain. 2. No acute cerebral infarction is seen. 3. No evidence of space occupying mass lesion could be found. 4. No evidence of intracranial hemorrhage.
== END 2023-11-15 12:47 | disposition home or self-care (01) ==
LOC: HO.MRI 12:46
PROVIDERS: PCP Internal Medicine; Visit Provider Nurse Practitioner Family
DX: H53.9 Unspecified visual disturbance (principal); G43.019 Migraine without aura, intractable, without status migrainosus
CPT/HCPCS: 70551

== ENCOUNTER 2024-01-27 07:37 | Outpatient (AMB) | payer BC, SELFPAY ==
--- NOTE | 2024-01-27 07:28 | MHC.OFFVIS ---
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 Allergies lactose Allergy (Unknown, Verified 01/27/24 07:31) abdominal pain seasonal Allergy (Unknown, Uncoded 01/13/23 11:19) unknown Medication List - Last Reconciled 01/27/24 by ARISTEO Ruelas galcanezumab-gnlm (Emgality Pen) 120 mg subcut ONCE 30 days ibuprofen 400 mg (2 x 200 mg) PO ONCE PRN 90 days norethindrone ac-eth estradiol 1.5-30 mg-mcg () 1 tab PO DAILY sumatriptan succinate 50 - 100 mg orally at onset of headache, may repeat in 2 hrs PRN; max 2 tabs per day or 4 tabs/week (may take with Ibuprofen) 30 days valacyclovir 500 mg PO DAILY HPI Comments Details: 33-yr-old female presents for f/u televideo visit via [employer] Pt denies any significant interval medical changes. Since the last visit, pt tried Prorpanolol however this exacerbated her migraine headaches and was having daily migraine and so this was stopped. . She was taking the OTC B2 and Mag- but thought she was supposed to stop it. Thus, we advised pt to start Emgality. She took her loading dose of Emgality last night. She states Sumatriptan does help, may have to take a 2nd dose or adjunct w/ Ibuprofen. Tends to run out of sumatriptan by the end of the month. Baseline headache characteristics: Prodrome symptoms: None Aura: Sees little lights in her and flashing lights right eye f/b blurry vision x's a few minutes- occurs before a migraine but not a headache. Pain intensity: Severe Location, quality, characteristics: Usually right sided, but can be left sided, frontal, retroorbital, temporal throbbing and stabbing pain Associated symptoms? Photophobia, phonophobia, nausea, rarely vomiting, allodynia, fatigue, ayaz eye tearing, activity intolerance. Postdrome: lingering s/s Triggers: stress, skipping meals, not getting fluid, weather changes. Menstrual triggers: Menses is irregular- has never noticed a clear trigger. MR/MR head/brain wo con IMPRESSION: 1. Normal MRI scan of the brain. 2. No acute cerebral infarction is seen. 3. No evidence of space occupying mass lesion could be found. 4. No evidence of intracranial hemorrhage. PFSH Surgical History History of knee surgery Family History Father HTN (hypertension) Diabetes mellitus Mother Breast cancer Paternal Uncle Lung cancer Sister No problems noted. Social History Housing: House Alcohol intake: current Alcohol intake frequency: a few times a month Patient Tobacco Use Status: Never used Tobacco e-Cigarette/Vaping Use: Never Used service: No Current occupational status: employed Cognitive needs: No Hearing needs: No Vision needs: Yes Physical Exam Const General: cooperative and no acute distress Orientation/consciousness: patient oriented x3 Resp Effort & Inspection: normal respiratory effort and able to speak in complete sentences Neuro General: patient oriented x3 Cognition (Neuro): normal cognition Psych Appearance: grossly normal Mental Status: mental status grossly normal Speech and movement: Normal speech and movement present Affect: normal affect Attitude: cooperative Telehealth Telehealth Telehealth Platform: [employer] Location of provider rendering services: practice address Location of patient: address on file Patient Identification confirmed using: Name, : Yes Telehealth method: video Patient verbally consented to treatment: Yes Patient verbally consented to billing insurance company: Yes Patient informed of any privacy concerns related to visit: Yes Minutes spent on Phone/Video with Pt.: 26 Assessment & Plan Assessment & Plan (1) Migraine with aura: Code(s): G43.109 - Migraine with aura, not intractable, without status migrainosus Category: Medical (2) Visual aura: Code(s): H53.9 - Unspecified visual disturbance Category: Medical (3) Bruxism, sleep-related: Code(s): G47.63 - Sleep related bruxism Category: Medical Plan Reviewed barin MRI w/o- normal. ? For overall headache management: Optimize good self-care, including but not limited to maintaining a healthy diet, adequate fluid intake, adequate sleep, and engaging in regular physical activity. For headache triggers: Track headaches, especially after any treatment regimen changes. [employer] is one of many headache tracking apps. Light sensitivity tips: Patient may try blue light filtering glasses, green glasses, green light therapy. Avoid wearing sunglasses inside. For Bruxism: OTC mouth guard- her previous mouth guard is broken. ? For acute headache treatment: Discussed importance of taking acute medications at the first sign of headache, however stressed importance of avoiding acute medication overuse (especially with combined headache medications). Sumatriptan 50mg to 100mg prn, MR in 2 hrs, max 200mg/day. May take w/ Ibuprofen 400-800mg prn. Previous acute migraine medication trials: Sumatriptan 50mg- usually helps, but runs out by end of month. Intranasal liquid tx- was effective, pt unsure of name. Acute migraine medication contraindications: None at this time ? For headache prevention medication: Resume Riboflavin 400mg qam and Magnesium 400mg qhs. Continue Emgality 120mg sc q month.. Previous migraine prevention medication trials: Amitriptyline 10mg, helped but caused GI s/s, constipation. Propranolol ER- caused uptick in headache. Magnesium and Riboflavin- ineffective on their own. Migraine prevention medication contraindications: Pt has lactose allergy. ? ? Pt to follow-up in 6 months or sooner prn. Medications: New riboflavin (vitamin B2) OTC 400 mg PO DAILY 30 days 30 tabs 6RF magnesium oxide may hold for loose stools 400 mg PO BEDTIME 30 days 30 tabs 6RF Changed From galcanezumab-gnlm (Emgality Pen) Maintenance dose of 120 mg subcu q.month. 240 mg (2 mL) subcut ONCE 30 days 1 mL 6RF G43.109 - Migraine with aura, not intractable, without status migrainosus To galcanezumab-gnlm (Emgality Pen) Maintenance dose of 120 mg subcu q.month. 120 mg subcut ONCE 30 days 1 mL 6RF G43.109 - Migraine with aura, not intractable, without status migrainosus Refilled sumatriptan succinate (0.5 - 1 x 100 mg) 50 - 100 mg orally at onset of headache, may repeat in 2 hrs PRN; max 2 tabs per day or 4 tabs/week (may take with Ibuprofen) 30 days 12 tabs 6RF migraine headache Discontinued propranolol ER Discontinued Reason: Doctor's Order 60 mg PO BEDTIME 30 days 30 caps 3RF Scribe Plan - Not visible on output: Reviewed possible medication side effects, including but not limited to drowsiness, dizziness. Coding Level of Care Code Tele Est Pt Level 4 (16621) Diagnoses Migraine with aura G43.109 Visual aura H53.9 Bruxism, sleep-related G47.63
== END 2024-01-27 11:25 | disposition home or self-care (01) ==
LOC: HO.HSMS 07:37
PROVIDERS: PCP Internal Medicine; Visit Provider Nurse Practitioner Family
DX: G43.109 Migraine with aura, not intractable, without status migrainosus (principal); H53.9 Unspecified visual disturbance; G47.63 Sleep related bruxism
CPT/HCPCS: 99214

== ENCOUNTER → 2024-01-27 07:37 | Outpatient (BNVA) | payer BC, SELFPAY | PROVIDERS: PCP Internal Medicine; Visit Provider Nurse Practitioner Family ==

== ENCOUNTER 2024-02-01 15:24 | Outpatient (AMB) | payer BC, MEDICAID, SELFPAY ==
[2024-02-01 15:26] VITALS: BP 110/78; PULSE 92; O2SAT 99; BMI 27.7
--- NOTE | 2024-02-01 15:26 | A.OFFPC_ITS ---
Vital Signs 02/01/24 15:26 Height 5 ft 4 in Weight 161 lb 2 oz BMI 27.7 BP 110/78 Blood Pressure Location Rt brachial Position Sitting Pulse 92 Pulse Source Pulse Oximeter Pulse Oximetry (%) 99 Intake Visit Reasons: Physical exam Allergies lactose Allergy (Unknown, Verified 02/01/24 15:27) abdominal pain seasonal Allergy (Unknown, Uncoded 01/13/23 11:19) unknown Medication List - Last Reconciled 02/01/24 by Mo Davis MD [id number] (Emgality Pen) 120 mg subcut ONCE 30 days ibuprofen 400 mg (2 x 200 mg) PO ONCE PRN 90 days magnesium oxide 400 mg PO BEDTIME 30 days riboflavin (vitamin B2) 400 mg PO DAILY 30 days sumatriptan succinate 50 - 100 mg orally at onset of headache, may repeat in 2 hrs PRN; max 2 tabs per day or 4 tabs/week (may take with Ibuprofen) 30 days valacyclovir 500 mg PO DAILY Tobacco use date assessed: 02/01/24 Dental Screening Dental Screen Date: 02/01/24 Did you have a dental visit in the last 12 months?: Yes Did you have a dental problem in the last 6 months where you did not have access to dental care?: No Was dental information given to patient?: Patient has dentist HPI Physical exam HPI Details Patient is a 33-year-old female This is a physical exam appointment Patient continued to have abdominal cramping which is unrelated to eating She also has developed 1 hemorrhoid which is causing itching off and on She is managing it with [id number] medications We talked about abdominal cramping and possibility of irritable bowel syndrome I would recommend to start keeping a food diary to see if she can correlate symptoms with what she is eating I have sent dicyclomine 20 mg, to be taken 20 minutes before meal to see if that helps Referral to gastroenterology placed She has already gone through allergy testing and pass the test She has OBGYN, breast exam through them She is few lb overweight and is trying to lose weight Lab order placed to be done fasting [facility] Surgical History History of knee surgery Family History Father HTN (hypertension) Diabetes mellitus Mother Breast cancer Paternal Uncle Lung cancer Sister No problems noted. Social History Housing: House Alcohol intake: current Alcohol intake frequency: a few times a month Patient Tobacco Use Status: Never used Tobacco e-Cigarette/Vaping Use: Never Used service: No Current occupational status: employed Cognitive needs: No Hearing needs: No Vision needs: Yes Questionnaire PHQ-9 Over the last 2 weeks, how often have you been bothered by any of the following problems? 1. Little interest or pleasure in doing things: not at all 2. Feeling down, depressed, or hopeless: several days 3. Trouble falling or staying asleep, or sleeping too much: several days 4. Feeling tired or having little energy: not at all 5. Poor appetite or overeating: not at all 6. Feeling bad about yourself - or that you are a failure or have let yourself or your family down: not at all 7. Trouble concentrating on things, such as reading the newspaper or watching television: not at all 8. Moving or speaking so slowly that other people could have noticed. Or the opposite - being so fidgety or restless that you have been moving around a lot more than usual: not at all 9. Thoughts that you would be better off or of hurting yourself in some way: not at all Total score: 2 Depression Screening Interpretation: Negative Depression Screening Done: Yes 96069 - PHQ-9 Billing: Yes Source: Developed by Drs. Serjio Greene, Shivani Bell, Rolando Murillo and colleagues, with an educational tahira from [email or web address]. Thrive Questionnaire Date Thrive assessed: 02/01/24 I am a: Patient What is your living situation today?: I have a steady place to live Within the past 12 months, did the food you bought not last and you didn't have the money to get more?: Never true Within the past 12 months, did you worry whether your food would run out before you got money to buy more?: Never true Do you have trouble paying for medicines?: No Do you have trouble getting transportation to medical appointments?: No Do you have trouble paying your heating and electricity bill?: No Do you have trouble taking care of your child, family member or friend?: No Do you have trouble with day-to-day activities such as bathing, preparing meals, shopping, managing finances, etc.?: No Are you interested in more education?: No Please select the resources that you would like help with: None Currently or been in a relationship where the following occur: No concerns reported THRIVE Score: 0 AUDIT C Alcohol Use Questionnaire (AUDIT-C) 1. How often do you have a drink containing alcohol?: Monthly or less 2. How many drinks containing alcohol do you have on a typical day when you are drinking?: 1 or 2 3. How often do you have six or more drinks on one occasion?: Never Total Score: 1 Score Reviewed/Action Taken: Yes МАРИЯ-7 AMB Questionnaire МАРИЯ-7 Date МАРИЯ - 7 assessed: 02/01/24 Feeling nervous, anxious, or on edge: 1 = Several days Not being able to stop or control worryin = Not at all Worrying too much about different things: 0 = Not at all Trouble relaxin = Not at all Being so restless that it is hard to sit still: 0 = Not at all Becoming easily annoyed or irritable: 0 = Not at all Feeling afraid as if something awful might happen: 0 = Not at all Total МАРИЯ-7 score (0-4 normal; 5-9 mild; 10-14 moderate; 15-21 severe): 1 Source: Developed by Drs. Serjio Greene, Shivani Bell, Rolando Murillo and colleagues, with an educational tahira from [email or web address]. МАРИЯ-7 Assessment Billing МАРИЯ-7 Assessment Tool: МАРИЯ-7 Assessment 87266 Review of Systems Const Denies chills, Denies fever(s) and Denies headache(s) Eyes Denies blurry vision ENT Denies headache(s), Denies nasal discharge, Denies nasal obstruction, Denies odynophagia and Denies sinus pain Card Denies chest pain at rest and Denies chest pain with activity Resp Denies cough and Denies hemoptysis GI Denies odynophagia, Denies vomiting and Denies hematemesis Reports as per HPI Musc Denies abnormal gait Skin/Breast Reports as per HPI Neuro Denies Neuro-related abnormal movements, Denies Abnormal speech present, Denies abnormal gait, Denies headache(s) and Denies Sensory deficit (Neuro) Psych Denies mood swings and Denies paranoia Endo Reports as per HPI Stefano/Lymph Reports as per HPI Aller/Immun Reports as per HPI Physical exam (Primary Care) Vital Signs: Last Vital Signs Pulse 92 02/01/24 15:26 BP 110/78 02/01/24 15:26 Pulse Ox 99 02/01/24 15:26 BMI result Body Mass Index 27.7 Tobacco/Smoking Status: Tobacco use Status Tobacco use date assessed 02/01/24 02/01/24 15:34 Patient Tobacco Use Status Never used Tobacco 02/01/24 15:26 e-Cigarette/Vaping Use Never Used 02/01/24 15:26 PHQ-9: PHQ-9 Score PHQ-9: Total score 2 02/01/24 15:34 Depression Screening Interpretation: Negative Thrive Assessment: Date of Thrive Assessment Date Thrive assessed 02/01/24 02/01/24 15:34 Currently or been in a relationship where the following occur: No concerns reported Const General: cooperative, comfortable and no acute distress Orientation/consciousness: patient oriented x3 HENMT Head: Yes normocephalic and Yes atraumatic Eyes General: appearance normal, both eyes and all related structures Pupils: Equal, round and reactive pupils present EOM: EOMs intact bilaterally Neck Neck: Yes supple and No lymphadenopathy Thyroid: Thyroid normal Lymphatic: no lymphadenopathy noted Resp Effort & Inspection: normal respiratory effort and able to speak in complete sentences Auscultation: clear to auscultation bilaterally Cardio Heart sounds: S1 normal heart sound present and S2 normal heart sound present GI Other: One single small hemorrhoid Palpation (GI): Soft to palpation and nontender Auscultation: normal bowel sounds General: Yes no CVA tenderness Back/Spine/Pelvis Back: no CVA tenderness Skin General skin exam: elasticity normal and turgor normal Neuro General: patient oriented x3 and gait normal Cranial nerves: Yes Equal, round and reactive pupils present Speech: No Abnormal speech present Sensory Exam: No Sensory deficit (Neuro) Coordination: tandem gait normal and Romberg test negative Extrem General: Yes normal exam except as noted and No edema Assessment and Plan Assessment & Plan (1) Encounter for general adult medical examination with abnormal findings: Code(s): Z00.01 - Encounter for general adult medical examination with abnormal findings (2) Hemorrhoid: Code(s): K64.9 - Unspecified hemorrhoids Qualifiers: Hemorrhoid type: first degree Qualified Code(s): K64.0 - First degree hemorrhoids (3) Abdominal cramping: Code(s): R10.9 - Unspecified abdominal pain (4) Migraine headache: Comment: Management through neurology Code(s): G43.909 - Migraine, unspecified, not intractable, without status migrainosus Qualifiers: Intractability: intractable Migraine type: without aura Status migrainosus presence: without status migrainosus Qualified Code(s): G43.019 - Migraine without aura, intractable, without status migrainosus Plan Patient is a 33-year-old female This is a physical exam appointment Patient continued to have abdominal cramping which is unrelated to eating She also has developed 1 hemorrhoid which is causing itching off and on She is managing it with sapl-cjd-osmrxao medications We talked about abdominal cramping and possibility of irritable bowel syndrome I would recommend to start keeping a food diary to see if she can correlate symptoms with what she is eating I have sent dicyclomine 20 mg, to be taken 20 minutes before meal to see if that helps Referral to gastroenterology placed She has already gone through allergy testing and pass the test She has OBGYN, breast exam through them She is few lb overweight and is trying to lose weight Lab order placed to be done fasting Orders: Orders Comprehensive [place]. Panel Fast Today G43.019 - Migraine without aura, intractable, without status migrainosus, K64.9 - Unspecified hemorrhoids, R10.9 - Unspecified abdominal pain, Z00.01 - Encounter for general adult medical examination with abnormal findings Complete Blood Count Auto Diff Today G43.019 - Migraine without aura, intractable, without status migrainosus, K64.9 - Unspecified hemorrhoids, R10.9 - Unspecified abdominal pain, Z00.01 - Encounter for general adult medical examination with abnormal findings Lipid Panel Today G43.019 - Migraine without aura, intractable, without status migrainosus, K64.9 - Unspecified hemorrhoids, R10.9 - Unspecified abdominal pain, Z00.01 - Encounter for general adult medical examination with abnormal findings TSH reflex Free T4 Today G43.019 - Migraine without aura, intractable, without status migrainosus, K64.9 - Unspecified hemorrhoids, R10.9 - Unspecified abdominal pain, Z00.01 - Encounter for general adult medical examination with abnormal findings Vitamin D 25-OH (D2 and D3) Today G43.019 - Migraine without aura, intractable, without status migrainosus, K64.9 - Unspecified hemorrhoids, R10.9 - Unspecified abdominal pain, Z00.01 - Encounter for general adult medical examination with abnormal findings Referrals Gastroenterology Referral R10.9 - Unspecified abdominal pain Medications: New dicyclomine 20 mg PO BID 30 tabs 0RF Abdominal cramping Coding Level of Care Code Est Pt Level 3 (99197) Est Pt Prev Care 18-39y(50967) Diagnoses Encounter for general adult medical examination with abnormal findings Z00.01 Grade I hemorrhoids K64.0 Hemorrhoid type: first degree Abdominal cramping R10.9 Intractable migraine without aura and without status migrainosus G43.019 Intractability: intractable Migraine type: without aura Status migrainosus presence: without status migrainosus Additional Codes МАРИЯ-7 Assessment Billing - МАРИЯ-7 Assessment Tool: МАРИЯ-7 Assessment 34588 ([id number])
== END 2024-02-01 16:46 | disposition home or self-care (01) ==
PROVIDERS: PCP Internal Medicine; Visit Provider Internal Medicine
DX: Z00.00 Encounter for general adult medical examination without abnormal findings (principal); K64.0 First degree hemorrhoids; R10.9 Unspecified abdominal pain; G43.019 Migraine without aura, intractable, without status migrainosus

== ENCOUNTER → 2024-02-01 15:24 | Outpatient (BNVA) | payer BC, SELFPAY | PROVIDERS: PCP Internal Medicine; Visit Provider Internal Medicine | DX: Z00.01 Encounter for general adult medical examination with abnormal findings (principal); K64.0 First degree hemorrhoids; R10.9 Unspecified abdominal pain; G43.019 Migraine without aura, intractable, without status migrainosus | CPT/HCPCS: 96127 ==

== ENCOUNTER 2025-01-02 09:26 | Outpatient (AMB) | payer BC, SELFPAY ==
--- NOTE | 2025-01-02 09:43 | AM.OFFWIN_ITS ---
Intake Vital Signs 01/02/25 09:45 Height 5 ft 4 in Weight 167 lb BMI 28.7 BP 102/66 Blood Pressure Location Lt brachial Position Sitting Pulse 106 H Pulse Source Pulse Oximeter Temp 98.1 F Temp Source Oral Pulse Oximetry (%) 98 Oxygen Delivery Method Room Air Intake Visit Reasons: EP-lt foot little toe pain/swollen Intake Note: presents with left 5th toe pain, bruising after hitting toe in the middle of the night Patient Tobacco Use Status: Never used Tobacco Patient : Yes Allergies lactose Allergy (Unknown, Verified 01/02/25 09:47) abdominal pain seasonal Allergy (Unknown, Uncoded 01/13/23 11:19) unknown Do you need a note to return to daycare/school/sports/work: No HPI HPI Comments History of Present Illness Details History of Present Illness - The patient is a 34-year-old female pr esenting with a suspected toe fracture. - The injury occurred at 2:00 AM today w hen the patient kicked a litter box. - The patient reports increased pain whi le walking and notes swelling and bruising of the toe. - The patient is currently , whi ch may contribute to swelling. Physical Exam General: Cooperative, healthy appearing, comfortable, no acute distress and well developed Orientation: Patient oriented x3 Respiratory: Normal respiratory effort and able to speak in complete sentences. Clear to auscultation bilaterally Cardiovascular: Regular rate and rhythm. Normal S1 and S2 Skin: No rashes or lesions noted. Bruising noted to the left 5th toe. Neuro: Sensation intact. Extremities: Swollen and bruised little toe on the left foot. TTP of the left 5th toe. No TTP of the metatarsal. Ambulates with a limp. Strength is 5/5 on the LE. FROM of the left ankle. Patient was informed and verbally consented to the use of an ambient scribe for clinic note documentation during this visit. [facility] Surgical History History of knee surgery Family History Father HTN (hypertension) Diabetes mellitus Mother Breast cancer Paternal Uncle Lung cancer Sister No problems noted. Social History Housing: House Alcohol intake: current Alcohol intake frequency: a few times a month Patient Tobacco Use Status: Never used Tobacco e-Cigarette/Vaping Use: Never Used Patient : Yes service: No Current occupational status: employed Cognitive needs: No Hearing needs: No Vision needs: Yes Review of Systems Const All systems reviewed & are unremarkable except as noted in HPI and below Physical Exam Vital Signs: Last Vital Signs Temp 98.1 F 01/02/25 09:45 Pulse 106 H 01/02/25 09:45 BP 102/66 01/02/25 09:45 Pulse Ox 98 01/02/25 09:45 Oxygen Delivery Method Room Air 01/02/25 09:45 BMI result Body Mass Index 28.7 Results Reviewed Results Reviewed: Reviewed the x-ray in the office Assessment & Plan Assessment & Plan (1) Contusion of toe of left foot: Code(s): S90.122A - Contusion of left lesser toe(s) without damage to nail, initial encounter Qualifiers: Encounter type: initial encounter Toe: lesser toe Damage to nail status: without damage Qualified Code(s): S90.122A - Contusion of left lesser toe(s) without damage to nail, initial encounter Plan Most likely fracture vs contusion vs sprain Plan - The patient was advised that an x-ray can be done but is and can wait until after her delivery in 2 weeks unless symptoms persist or worsen. - A protective shoe was recommended to aid in healing and reduce discomfort. - Tylenol as needed for pain. - rest, ice and elevation to the foot - Follow-up with PCP in 2-3 weeks if pain persists. - Can refer her to an machine shop specialist is suggested if pain persists. Coding Level of Care Code Est Pt Level 3 (70855) Diagnoses Contusion of lesser toe of left foot without damage to nail, initial encounter S90.122A Encounter type: initial encounter Toe: lesser toe Damage to nail status: without damage
[2025-01-02 09:45] VITALS: BP 102/66; PULSE 106; TEMP 36.7; O2SAT 98; BMI 28.7
== END 2025-01-02 11:14 | disposition home or self-care (01) ==
PROVIDERS: PCP Internal Medicine; Visit Provider Physician Assistant Medical
DX: S90.122A Contusion of left lesser toe(s) without damage to nail, initial encounter (principal)

== ENCOUNTER 2025-02-06 11:03 | Outpatient (AMB) | payer BC, SELFPAY ==
[2025-02-06 11:05] VITALS: BP 110/70; PULSE 83; O2SAT 98; BMI 24.2
--- NOTE | 2025-02-06 11:05 | A.OFFPC_ITS ---
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: No Accompanied by: Self / Same As Patient Allergies lactose Allergy (Unknown, Verified 02/06/25 11:05) abdominal pain seasonal Allergy (Unknown, Uncoded 01/13/23 11:19) unknown Medication List - Last Reconciled 02/06/25 by Mo Davis MD calcium carbonate 500 mg PO DAILY ferrous sulfate 325 mg PO Q OTHER DAY omeprazole 20 mg PO DAILY vit no.[id number] 27 mg iron- 800 mcg ( Vitamin) 1 tab PO DAILY valacyclovir 500 mg PO DAILY PRN Tobacco use date assessed: 02/06/25 Dental Screening Dental Screen Date: 02/06/25 Did you have a dental visit in the last 12 months?: Yes Did you have a dental problem in the last 6 months where you did not have access to dental care?: No Was dental information given to patient?: Patient has dentist HPI PE HPI Details History of Present Illness The patient is a 34-year-old female presenting with a routine physical exam[facility] department. Gestational Diabetes Mellitus: - Diagnosed during her recent . - Delivered via section two wee ks ago. - Previous advice was to wait three leah hs post-delivery for evaluation of A1c levels to determine any ongoing issues such as potential prediabetes. Herpes Simplex Virus (HSV): - Patient reports a sensation of tingle s, indicative of possible prodromal symptoms. - Current treatment involves as-needed m edication to prevent outbreak flares. Medical History: - Gestational Diabetes Mellitus during r ecent - Herpes Simplex Virus Surgical History: - section two weeks ago Social History: - Recently delivered a second child - currently Family History: - Family history of diabetes in the kaya ent?s father Health Maintenance - [facility] - Up-to-date vaccinations, including tet anus and flu vaccine Diagnostic results - Upcoming labs planned for A1c and fast ing glucose levels, as previously the patient had a history of gestational diabetes Patient Instructions - Refill prescription for Valacyclovir - Take Valacyclovir at symptom onset, ty pically for two days - Wait three months post-delivery for A1 c testing as previously advised - Follow-up for subsequent healthcare ne eds in one year unless otherwise advised Review of Systems - General: No fever no chills - Neurological: No headaches no dizzin ess - Ear nose throat: No sore throat no hearing difficulty no ear pain - Cardiovascular: No syncope, no chest pain, no palpitations - Gastrointestinal: No nausea vomiting or diarrhea - Endocrine: No polyuria polydipsia no heat intolerance - Genitourinary: No dysuria - Skin: No new complaints Physical Exam General: Cooperative, healthy appearing, comfortable, no acute distress Orientation: Patient oriented x3 Limitations: none Head: Normal to inspection Ears: Within normal limit visually Nose: Normal external nose present Face and sinus: Normal facial exam Eyes: Appearance normal, extraocular movement intact pupils reactive Neck: Normal visual inspection and supple Respiratory: Normal respiratory effort and able to speak in complete sentences. Clear to auscultation, no stridor Cardiovascular: S1 and S2 RRR GI: Normal to inspection. Soft to palpation and nontender Skin: Turgor normal, no acute findings Neuro: Patient oriented x3, motor sensory intact, balance intact, tandem pass Extremities: Normal to inspection Patient was informed and verbally consented to the use of an ambient scribe for clinic note documentation during this visit. [facility] Surgical History Hx of tubal ligation Hx of section History of knee surgery Family History Father HTN (hypertension) Diabetes mellitus Mother Breast cancer Paternal Uncle Lung cancer Sister No problems noted. Social History Housing: House Alcohol intake: current Alcohol intake frequency: a few times a month Patient Tobacco Use Status: Never used Tobacco e-Cigarette/Vaping Use: Never Used service: No Current occupational status: employed Cognitive needs: No Hearing needs: No Vision needs: Yes Questionnaire PHQ-9 Over the last 2 weeks, how often have you been bothered by any of the following problems? 1. Little interest or pleasure in doing things: not at all 2. Feeling down, depressed, or hopeless: several days 3. Trouble falling or staying asleep, or sleeping too much: several days 4. Feeling tired or having little energy: not at all 5. Poor appetite or overeating: not at all 6. Feeling bad about yourself - or that you are a failure or have let yourself or your family down: not at all 7. Trouble concentrating on things, such as reading the newspaper or watching television: not at all 8. Moving or speaking so slowly that other people could have noticed. Or the opposite - being so fidgety or restless that you have been moving around a lot more than usual: not at all 9. Thoughts that you would be better off or of hurting yourself in some way: not at all Total score: 2 Depression Screening Interpretation: Negative Depression Screening Done: Yes 74287 - PHQ-9 Billing: Yes Source: Developed by Drs. Serjio Greene, Shivani Bell, Rolando Murillo and colleagues, with an educational tahira from [employer]. Thrive Questionnaire Date Thrive assessed: 01/30/25 I am a: Patient What is your living situation today?: I have a steady place to live Within the past 12 months, did the food you bought not last and you didn't have the money to get more?: Never true Within the past 12 months, did you worry whether your food would run out before you got money to buy more?: Never true Do you have trouble paying for medicines?: No Do you have trouble getting transportation to medical appointments?: No Do you have trouble paying your heating and electricity bill?: No Do you have trouble taking care of your child, family member or friend?: No Do you have trouble with day-to-day activities such as bathing, preparing meals, shopping, managing finances, etc.?: No Are you interested in more education?: No Please select the resources that you would like help with: None Currently or been in a relationship where the following occur: No concerns reported THRIVE Score: 0 AUDIT C Alcohol Use Questionnaire (AUDIT-C) 1. How often do you have a drink containing alcohol?: Never 2. How many drinks containing alcohol do you have on a typical day when you are drinking?: 1 or 2 3. How often do you have six or more drinks on one occasion?: Never Total Score: 0 Score Reviewed/Action Taken: Yes МАРИЯ-7 AMB Questionnaire МАРИЯ-7 Date МАРИЯ - 7 assessed: 02/06/25 Feeling nervous, anxious, or on edge: 1 = Several days Not being able to stop or control worryin = Not at all Worrying too much about different things: 0 = Not at all Trouble relaxin = Not at all Being so restless that it is hard to sit still: 0 = Not at all Becoming easily annoyed or irritable: 0 = Not at all Feeling afraid as if something awful might happen: 0 = Not at all Total МАРИЯ-7 score (0-4 normal; 5-9 mild; 10-14 moderate; 15-21 severe): 1 Source: Developed by Drs. Serjio Greene, Shivani Bell, Rolando Murillo and colleagues, with an educational tahira from [employer]. МАРИЯ-7 Assessment Billing МАРИЯ-7 Assessment Tool: МАРИЯ-7 Assessment 86836 Physical exam (Primary Care) Vital Signs: Last Vital Signs Pulse 83 02/06/25 11:05 BP 110/70 02/06/25 11:05 Pulse Ox 98 02/06/25 11:05 BMI result Body Mass Index 24.2 Tobacco/Smoking Status: Tobacco use Status Tobacco use date assessed 02/06/25 02/06/25 11:06 Patient Tobacco Use Status Never used Tobacco 02/06/25 11:06 e-Cigarette/Vaping Use Never Used 02/06/25 11:06 PHQ-9: PHQ-9 Score PHQ-9: Total score 2 02/06/25 11:32 Depression Screening Interpretation: Negative Thrive Assessment: Date of Thrive Assessment Date Thrive assessed 01/30/25 02/06/25 11:06 Currently or been in a relationship where the following occur: No concerns reported Office Procedures Flu Questionnaire Does the patient have a severe egg allergy?: No Does the patient have severe life threatening allergies?: No Does the patient have a fever or illness today?: No Has the patient ever had Guillain-[place] Syndrome?: No Has the patient ever had any past reaction to a flu shot?: No Immunizations Fluarix [id number] (PF) 45 mcg (15 mcg x 3)/0.5 mL IM syringe Performing Provider: Mo Davis MD Performing Location: [facility] Administered by: Sahil Snider CMA on 02/06/25 11:32 Dose Route Admin Location Dispensed Lot Number Expiration Date NDC [employer] Operator 0.5 mL IM Right Deltoid 0.5 mL [id number] 11/13/25 [id number] Fixed - [facility] V[facility] Given Date VIS Provided VIS Publication Date 02/06/25 Single Vaccine 24 Eligibility Eligibility Date Funding Source Not [facility] Eligible 02/06/25 Private Coding Level of Care Code Est Pt Level 3 (21523) Est Pt Prev Care 18-39y(90963) Diagnoses Encounter for general adult medical examination with abnormal findings Z00.01 Recurrent herpes labialis B00.1 Intractable migraine without aura and without status migrainosus G43.019 Intractability: intractable Migraine type: without aura Status migrainosus presence: without status migrainosus Gestational diabetes mellitus (GDM), antepartum, gestational diabetes method of control unspecified O24.419 Gestational diabetes mellitus control: unspecified Trimester: unspecified trimester Environmental allergies Z91.09 Additional Codes МАРИЯ-7 Assessment Billing - МАРИЯ-7 Assessment Tool: МАРИЯ-7 Assessment 48751 ([id number]) PHQ-9 - 09455 - PHQ-9 Billing: Yes ([id number]) Assessment & Plan Assessment & Plan (1) Encounter for general adult medical examination with abnormal findings: Code(s): Z00.01 - Encounter for general adult medical examination with abnormal findings Category: Medical (2) Recurrent herpes labialis: Code(s): B00.1 - Herpesviral vesicular dermatitis Category: Medical (3) Migraine headache: Comment: Management through neurology Code(s): G43.909 - Migraine, unspecified, not intractable, without status migrainosus Category: Medical Qualifiers: Intractability: intractable Migraine type: without aura Status migrainosus presence: without status migrainosus Qualified Code(s): G43.019 - Migraine without aura, intractable, without status migrainosus (4) Gestational diabetes: Code(s): O24.419 - Gestational diabetes mellitus in , unspecified control Category: Medical Qualifiers: Gestational diabetes mellitus control: unspecified Trimester: unspecified trimester Qualified Code(s): O24.419 - Gestational diabetes mellitus in , unspecified control (5) Environmental allergies: Code(s): Z91.09 - Other allergy status, other than to drugs and biological substances Category: Medical Plan History of Present Illness The patient is a 34-year-old female presenting with a routine physical examination. Gestational Diabetes Mellitus: - Diagnosed during her recent . - Delivered via section two weeks ago. - Previous advice was to wait three months post-delivery for evaluation of A1c levels to determine any ongoing issues such as potential prediabetes. Herpes Simplex Virus (HSV): - Patient reports a sensation of tingles, indicative of possible prodromal symptoms. - Current treatment involves as-needed medication to prevent outbreak flares. Medical History: - Gestational Diabetes Mellitus during recent - Herpes Simplex Virus Surgical History: - section two weeks ago Social History: - Recently delivered a second child - currently Family History: - Family history of diabetes in the patient?s father Health Maintenance - Discussed waiting three months post-delivery for evaluation of A1c levels - Up-to-date vaccinations, including tetanus and flu vaccine Diagnostic results - Upcoming labs planned for A1c and fasting glucose levels, as previously the pa waldo had a history of gestational diabetes Patient Instructions - Refill prescription for Valacyclovir - Take Valacyclovir at symptom onset, typically for two days - Wait three months post-delivery for A1c testing as previously advised - Follow-up for subsequent healthcare needs in one year unless otherwise advised Orders: Orders Hemoglobin A1c Today G43.019 - Migraine without aura, intractable, without status migrainosus, O24.419 - Gestational diabetes mellitus in , unsp ecified control, T78.40XA - Allergy, unspecified, initial encounter, Z00.01 - Encounter for general adult medical examination with abnormal findings Complete Blood Count Auto Diff Today G43.019 - Migraine without aura, intractable, without status migrainosus, O24.419 - Gestational diabetes mellitus in , unspecified control, T78.40XA - Allergy, unspecified, initial encounter, Z00.01 - Encounter for general adult medical examination with abnormal findings Influenza [id number] Immunization Today Z23 - Encounter for immunization Comprehensive [place]. Panel Fast Today G43.019 - Migraine without aura, intractable, without status migrainosus, O24.419 - Gestational diabetes mellitus in , unspecified control, T78.40XA - Allergy, unspecified, initial encounter, Z00.01 - Encounter for general adult medical examination with abnormal findings Lipid Panel Today G43.019 - Migraine without aura, intractable, without status migrainosus, O24.419 - Gestational diabetes mellitus in , unspecified control, T78.40XA - Allergy, unspecified, initial encounter, Z00.01 - Encounter for general adult medical examination with abnormal findings TSH reflex Free T4 Today G43.019 - Migraine without aura, intractable, without status migrainosus, O24.419 - Gestational diabetes mellitus in , unspecified control, T78.40XA - Allergy, unspecified, initial encounter, Z00.01 - Encounter for general adult medical examination with abnormal findings Medications: New valacyclovir 500 mg PO DAILY PRN 90 tabs 0RF cold sore
== END 2025-02-06 11:30 | disposition home or self-care (01) ==
PROVIDERS: PCP Internal Medicine; Visit Provider Internal Medicine
DX: Z00.01 Encounter for general adult medical examination with abnormal findings (principal); B00.1 Herpesviral vesicular dermatitis; G43.019 Migraine without aura, intractable, without status migrainosus; O24.419 Gestational diabetes mellitus in pregnancy, unspecified control; Z91.09 Other allergy status, other than to drugs and biological substances; Z23 Encounter for immunization

== ENCOUNTER → 2025-02-06 11:03 | Outpatient (BNVA) | payer BC, SELFPAY | PROVIDERS: PCP Internal Medicine; Visit Provider Internal Medicine | DX: Z00.01 Encounter for general adult medical examination with abnormal findings (principal); E11.9 Type 2 diabetes mellitus without complications; B00.1 Herpesviral vesicular dermatitis; G43.019 Migraine without aura, intractable, without status migrainosus; Z23 Encounter for immunization; Z86.32 Personal history of gestational diabetes; Z91.09 Other allergy status, other than to drugs and biological substances | CPT/HCPCS: 90471; 90656; 96127 ==

== ENCOUNTER 2025-04-18 14:36 | Outpatient (REF) | payer BC, SELFPAY ==
[2025-04-18 17:57] LABS: Resp Syncy Virus RNA Qual PCR NEGATIVE (Negative); SARS COV2 PCR INHOUSE NEGATIVE (Negative)
== END 2025-04-18 14:37 | disposition home or self-care (01) ==
LOC: HO.LNP 14:36
PROVIDERS: PCP Internal Medicine; Visit Provider Physician Assistant
DX: J02.9 Acute pharyngitis, unspecified (principal)
CPT/HCPCS: 87637; 87880

== ENCOUNTER 2025-04-18 14:36 | Outpatient (AMB) | payer BC, SELFPAY ==
[2025-04-18 14:42] VITALS: BP 110/80; PULSE 88; TEMP 36.8; O2SAT 98
--- NOTE | 2025-04-18 14:42 | AM.OFFWIN_ITS ---
Intake Vital Signs 04/18/25 14:42 Height 5 ft 4 in BP 110/80 Blood Pressure Location Lt brachial Position Sitting Pulse 88 Pulse Source Pulse Oximeter Temp 98.2 F Temp Source Oral Pulse Oximetry (%) 98 Oxygen Delivery Method Room Air Intake Visit Reasons: EP Sore throat Intake Note: Patient presents c/o sore throat, feels like she is swallowing glass x2 days. Patient Tobacco Use Status: Never used Tobacco Allergies lactose Allergy (Unknown, Verified 04/18/25 14:44) abdominal pain seasonal Allergy (Unknown, Uncoded 04/18/25 14:44) unknown HPI HPI Comments History of Present Illness Details Chief Complaint: My throat has been sore for the last two days. History of Present Illness: The patient is a female who reports two days of sore throat with a burning pain whenever she tries to swallow or eat. She denies any sick contacts at home. She also denies fevers, chills, chest pain, shortness of breath, cough, rhinorrhea, ear pain, nausea, vomiting, or diarrhea. States she otherwise feels well. Assessment: Likely viral pharyngitis. Strep test is negative. No indication for antibiotics at this time. Plan: Supportive care with swish and spit using salt water. Flu, COVID, and RSV testing have been ordered. Rationale: Patient is clinically stable, denies acute symptoms or signs of bacterial infection, and strep test is negative. No antibiotics indicated. Differential Diagnosis: * Viral pharyngitis (most likely, given negative strep and lack of bacterial features) * Streptococcal pharyngitis (less likely, strep test negative) * Infectious mononucleosis (consider if symptoms persist or worsen) * Allergic or irritant pharyngitis * Other viral upper respiratory infections (e.g., influenza, COVID-19, RSV) * Less likely: peritonsillar abscess or other deep neck space infection (no evidence on current exam or history) PFSH Surgical History Hx of tubal ligation Hx of section History of knee surgery Family History Father HTN (hypertension) Diabetes mellitus Mother Breast cancer Paternal Uncle Lung cancer Sister No problems noted. Social History Housing: House Alcohol intake: current Alcohol intake frequency: a few times a month Patient Tobacco Use Status: Never used Tobacco e-Cigarette/Vaping Use: Never Used service: No Current occupational status: employed Cognitive needs: No Hearing needs: No Vision needs: Yes Review of Systems Const All systems reviewed & are unremarkable except as noted in HPI and below Physical Exam Exam Exam: Appearance: Alert.? Oriented X3.? No acute distress.? Head: Normocephalic, atraumatic, no step-offs or deformities Eyes: Pupils equal, round and reactive to light.? ENT: Pharynx normal.??External ears normal, TMs normal bilaterally and EAC's normal. No pain with manipulation of external ears bilaterally. No mastoid tenderness. Neck: Normal inspection.? Neck supple.? CVS: Normal heart rate and rhythm.? Pulses normal.? Respiratory: No respiratory distress.? Breath sounds normal.? Abdomen: Soft and nontender.? Skin: Skin warm and dry.? Normal skin color.? Normal skin turgor.? Extremities: No lower extremity edema.? No calf ttp. 5/5 strength to bilateral upper and lower extremities Neuro: Oriented X 3.? No motor deficit.? No sensory deficit. CN 2-12 intact Vital Signs: Last Vital Signs Temp 98.2 F 04/18/25 14:42 Pulse 88 04/18/25 14:42 BP 110/80 04/18/25 14:42 Pulse Ox 98 04/18/25 14:42 Oxygen Delivery Method Room Air 04/18/25 14:42 vss Results AMB Rapid Strep AMB Rapid Strep Negative Last Edit by Vandana Ahmadi CMA on 04/18/25 14: 55 Results Reviewed Results Reviewed: Laboratory Last Values Strep Scn Rapid Clinic Negative 04/18/25 14:50 Assessment & Plan Assessment & Plan (1) Pharyngitis: Code(s): J02.9 - Acute pharyngitis, unspecified Plan Take your medications as prescribed. If you were prescribed antibiotics today, it is important that you take your medication to their entirety, do not skip any doses, do not finish them early. Follow-up with your primary care provider this week. Go to the emergency department with new or worsening symptoms. In case of emergency call 911 Orders: Orders AMB Rapid Strep Screen Today Z13.9 - Encounter for screening, unspecified SARS-CoV2/FLU/RSV Today J02.9 - Acute pharyngitis, unspecified Coding Level of Care Code Est Pt Level 3 (91134) Diagnoses Pharyngitis J02.9
== END 2025-04-18 15:35 | disposition home or self-care (01) ==
PROVIDERS: PCP Internal Medicine; Visit Provider Physician Assistant
DX: Z13.9 Encounter for screening, unspecified (principal); J02.9 Acute pharyngitis, unspecified

== ENCOUNTER 2025-05-04 08:01 | Outpatient (REF) | payer BC, SELFPAY ==
[2025-05-04 10:07] LABS: MANUAL DIFF FLAG NO
[2025-05-04 10:21] LABS: Hematocrit 43.9 % (37.0-47.0); Hemoglobin 14.6 g/dl (12.0-16.0); Imm Gran Abs Auto 0.02 X10*3/uL (0.00-0.03); Imm Gran Pct Auto 0.4 % (0.0-0.4); Lymphocytes Absolute Auto 1.5 X10*3/uL (1.2-4.9); Mean Corpuscular HGB Conc 33.3 g/dl (31.0-35.0); Mean Corpuscular Hemoglobin 30.5 pg (27.0-33.0); Mean Corpuscular Volume 91.6 fL (80.0-98.0); NRBC Abs Auto 0.000 X10*3/uL (0.0-0.012); NRBC Pct Auto 0.0 /100WBC (0.0-0.2); Platelet Count 223 X10*3/uL (160-400); Red Blood Count 4.79 X10*6/uL (4.20-5.50); White Blood Count 4.6 X10*3/uL (4.8-10.8)
[2025-05-04 10:45] LABS: Alanine Aminotransferase 33 U/L (0-31); Albumin Level 4.5 g/dL (3.5-5.0); Alkaline Phosphatase 100 U/L (39-117); Anion Gap 12 (12-20); Aspartate Amino Transferase 32 U/L (5-31); Blood Urea Nitrogen 17 mg/dL (9-16); Calcium 9.3 mg/dL (8.4-10.2); Carbon Dioxide 25 mmol/L (22-29); Chloride 104 mmol/L (96-108); Cholesterol 138 mg/dL (<200); Estimated Glomerular Filt Rate > 60; HDL Cholesterol 57 mg/dL (>40); Potassium 4.1 mmol/L (3.3-5.1); Sodium 137 mmol/L (135-145); Total Protein 7.4 g/dL (6.5-8.0); Triglycerides 66 mg/dL (<150)
== END 2025-05-04 08:02 | disposition home or self-care (01) ==
LOC: HO.HMGCLDS 08:01
PROVIDERS: PCP Internal Medicine; Visit Provider Internal Medicine
DX: H81.13 Benign paroxysmal vertigo, bilateral (principal); G43.019 Migraine without aura, intractable, without status migrainosus; T78.40XA Allergy, unspecified, initial encounter; Z13.1 Encounter for screening for diabetes mellitus; Z00.01 Encounter for general adult medical examination with abnormal findings; Z13.6 Encounter for screening for cardiovascular disorders
CPT/HCPCS: 36415; 80053; 80061; 83036; 84443; 85025

== ENCOUNTER 2025-05-04 15:02 | Outpatient (AMB) | payer BC, SELFPAY ==
--- NOTE | 2025-05-04 15:03 | A.OFFPC_ITS ---
Vital Signs 05/04/25 15:04 Height 5 ft 4 in Weight 150 lb BMI 25.7 BP 112/76 Blood Pressure Location Rt brachial Position Sitting Pulse 86 Pulse Source Pulse Oximeter Pulse Oximetry (%) 97 Intake Visit Reasons: Dizziness Allergies lactose Allergy (Unknown, Verified 05/04/25 15:04) abdominal pain seasonal Allergy (Unknown, Uncoded 04/18/25 14:44) unknown Medication List - Last Reconciled 05/04/25 by Mo Davis MD calcium carbonate 500 mg PO DAILY ferrous sulfate 325 mg PO Q OTHER DAY meclizine 25 mg PO TID PRN 10 days omeprazole 20 mg PO DAILY vit no.[id number] 27 mg iron- 800 mcg ( Vitamin) 1 tab PO DAILY valacyclovir 500 mg PO DAILY PRN Tobacco use date assessed: 02/06/25 Dental Screening Dental Screen Date: 02/06/25 HPI HPI Comments History of Present Illness Details History of Present Illness The patient is a 34 year old female presenting with dizziness. Benign Positional Vertigo: - The patient reports constant dizziness that began during her and has persisted for over nine months, since her delivery three months ago. - The dizziness is described as vertigo, triggered by any head movement, including sitting up, lying down, and standing up. - Associated symptoms include nausea and a sensation of pressure on her head. - She denies any known allergies. History of Gestational Diabetes: - The patient had gestational diabetes d uring her recent . - Recent lab work shows her current bloo d sugar level is normal. - There is a family history of diabetes. Social History: - Employment: She works with [employer]. Family History: - Diabetes: Runs in the family. - Father: History of atrial fibrillation and a blood clot in the heart; he is 65 years old. Diagnostic Results: - Labs: Recent labs showed no anemia, no rmal electrolytes, normal kidney function, normal blood sugar, and normal cholesterol. - Liver enzymes: Slightly elevated at 32 and 33 (normal <31), which is considered insignificant. - Thyroid: Testing was fine. PFS Surgical History Hx of tubal ligation Hx of section History of knee surgery Family History Father HTN (hypertension) Diabetes mellitus Mother Breast cancer Paternal Uncle Lung cancer Sister No problems noted. Social History Housing: House Alcohol intake: current Alcohol intake frequency: a few times a month Patient Tobacco Use Status: Never used Tobacco e-Cigarette/Vaping Use: Never Used service: No Current occupational status: employed Cognitive needs: No Hearing needs: No Vision needs: Yes Questionnaire Thrive Questionnaire Date Thrive assessed: 01/30/25 МАРИЯ-7 AMB Questionnaire МАРИЯ-7 Date МАРИЯ - 7 assessed: 02/06/25 Source: Developed by Drs. Serjio Greene, Shivani Bell, Rolando Murillo and colleagues, with an educational tahira from [employer]. Review of Systems Narrative Review of Systems - General: No fever no chills - Neurological: No headaches - Ear nose throat: No sore throat no hearing difficulty no ear pain - Cardiovascular: No syncope, no chest pain, no palpitations - Gastrointestinal: No nausea vomiting or diarrhea - Endocrine: No polyuria polydipsia no heat intolerance - Genitourinary: No dysuria , no blood in urine Physical exam (Primary Care) Vital Signs: Last Vital Signs Pulse 86 05/04/25 15:04 BP 112/76 05/04/25 15:04 Pulse Ox 97 05/04/25 15:04 BMI result Body Mass Index 25.7 Tobacco/Smoking Status: Tobacco use Status Tobacco use date assessed 02/06/25 05/04/25 15:05 Patient Tobacco Use Status Never used Tobacco 05/04/25 15:05 e-Cigarette/Vaping Use Never Used 05/04/25 15:05 Thrive Assessment: Date of Thrive Assessment Date Thrive assessed 01/30/25 05/04/25 15:05 Narrative Physical Exam General: No acute distress HEENT: No acute findings, slight fluid in the ear Neck: Supple, no pain, no tenderness Respiratory system: Able to talk in full sentences, no audible wheeze Cardiovascular: S1-S2 regular in rate and rhythm Gastrointestinal: No pain, but patient reports feeling nauseous Extremities: No new findings 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 awake oriented x3 motor intact, vertigo test + Skin: Normal turgor Coding Level of Care Code Est Pt Level 3 (68349) Diagnoses Benign paroxysmal positional vertigo due to bilateral vestibular disorder H81.13 Laterality: bilateral Dizziness R42 Comment Assessment & Plan Assessment & Plan (1) Benign positional vertigo: Code(s): H81.10 - Benign paroxysmal vertigo, unspecified ear Category: Medical Qualifiers: Laterality: bilateral Qualified Code(s): H81.13 - Benign paroxysmal vertigo, bilateral (2) Dizziness: Code(s): R42 - Dizziness and giddiness Category: Medical Plan Problem List - Benign positional vertigo - History of gestational diabetes mellitus Plan - The patient is diagnosed with benign positional vertigo. - A medication for vertigo will be sent to the patient's pharmacy, to be taken as needed up to three times a day. - The patient will undergo vestibular physical therapy and has been instructed to book an appointment at [facility]. - A referral to neurology will be made, and the patient was advised to send a message if she does not receive a call by the end of next week. - The patient was advised to move slowly and avoid rapid head movements. Orders: Orders PT Evaluation and Treatment Today H81.10 - Benign paroxysmal vertigo, unspecified ear Referrals Neurology Referral R42 - Dizziness and giddiness Medications: New meclizine 25 mg PO TID PRN 30 tabs 0RF dizziness 10 days
[2025-05-04 15:04] VITALS: BP 112/76; PULSE 86; O2SAT 97; BMI 25.7
== END 2025-05-04 15:26 | disposition home or self-care (01) ==
LOC: HO.HMCC 15:02
PROVIDERS: PCP Internal Medicine; Visit Provider Internal Medicine
DX: H81.13 Benign paroxysmal vertigo, bilateral (principal); R42 Dizziness and giddiness